=== PATIENT | female | born 1995 | race Asian ===

== ENCOUNTER 2017-03-21 15:50 | Emergency (ER) | payer SELFPAY ==
[2017-03-21 16:15] VITALS: BP 96/60
--- NOTE | 2017-03-21 18:31 | UC ---
Augusto Wilcox Stephanie, scribed for Isiah Espinoza MD on 03/21/17 at 1831 . Abdominal Pain Female HPI - HPI Summary HPI Summary: Pt is a 21 y/o F brought in by her professor with abdominal pain that began at 2400. She reports that this is the first day of her period but the pain is unusually intense. Pt took Advil but vomited 20 minutes after taking the pill. She thinks the vomiting is due to her pain intensity which she currently reports as being a 4, but was previously an 8 out of 10. Pt denies back pain and dysuria. - History of Current Complaint Chief Complaint: UCAbdominalPain Stated Complaint: ABD PAIN Time Seen by Provider: 03/21/17 17:13 Hx Obtained From: Patient Hx Last Menstrual Period: 03/20/17 Onset/Duration: Sudden Onset, Still Present Severity Initially: Severe - 8 out of 10 Severity Currently: Mild Pain Intensity: 4 Pain Scale Used: 0-10 Numeric Location: Epigastric Aggravating Factor(s): Nothing Alleviating Factor(s): Nothing Associated Signs and Symptoms: Negative: Back Pain, Urinary Symptoms Allergies/Adverse Reactions: Allergies Allergy/AdvReac Type Severity Reaction Status Date / Time No Known Allergies Allergy Verified 03/21/17 16:15 Home Medications: Home Medications Ibuprofen TAB* [Advil TAB*] 200 mg PO Q6H PRN 03/21/17 [History Confirmed ] PMH/Surg Hx/FS Hx/Imm Hx Previously Healthy: Yes - Surgical History Surgical History: None - Social History Occupation: Student Lives: Dormitory/Roommates - [employer] [place] Alcohol Use: Occasionally Substance Use Type: None Smoking Status (MU): Never Smoked Tobacco Review of Systems Gastrointestinal: Abdominal Pain - suprapubic, Vomiting - 1x Genitourinary: Other - Negative: Urinary Symptoms All Other Systems Reviewed And Are Negative: Yes Physical Exam Triage Information Reviewed: Yes Vital Signs: Initial Vital Signs Temp 97.6 F 03/21/17 16:08 Pulse 66 03/21/17 16:08 Resp 18 03/21/17 16:08 BP 96/60 03/21/17 16:08 Pulse Ox 100 03/21/17 16:08 Vital Signs Reviewed: Yes - Additional Comments General: well-appearing, no pain distress Skin: warm, color reflects adequate perfusion, dry Head: normal Eyes: EOMI, PEYTON ENT: normal Neck: supple, nontender Respiratory: CTA, breath sounds present Cardiovascular: RRR Abdomen: Mild suprapubic tenderness. Bowel: present Musculoskeletal: normal, strength/ROM intact Neurological: normal, sensory/motor intact, A&O x3 Psychological: affect/mood appropriate Abd Pain Female Course/Dx - Course Course Of Treatment: PATIENT REPORTS PAIN DECREASED IN CLINIC COMPARED TO THE PAIN THAT MADE HER COME TO THE CLINIC. SHE STATES THIS IS THE SAME CHARACTER AND LOCATION HER MENSTRUAL CRAMPING. THE PAIN IS MIDLINE, THERE IS NO RLQ TENDERNESS. NO FEVER. DENIES DYURIA AND C/O STI. SHE HAS BEEN TAKING IBUPROFEN 200MG ONCE FOR THE PAIN. SHE FEELS SHE VOMITED DUE TO THE SEVERITY OF THE PAIN. WE DISCUSSED IMMEDIATE REEVALUATION FOR WORSENING OF HER CONDITION; SHE AGREED. RECOMMENDED TAKING IBUPROFEN 600MG EVERY 6 HOURS NEEDED - Differential Dx/Diagnosis Provider Diagnoses: MIDLINE PELVIC PAIN. MENORRHAGIA. Discharge - Discharge Plan Condition: Stable Disposition: HOME Patient Education Materials: Ibuprofen (By mouth), Dysmenorrhea (ED), Pelvic Pain in Women (ED) Referrals: [facility],[place] [Primary Care Provider] - Additional Instructions: FOLLOW UP WITH [facility] IF NOT COMPLETELY IMPROVED. RETURN TO THE EMERGENCY DEPARTMENT FOR ANY WORSENING OF YOUR CONDITION; PAIN, FEVER, YOU FEEL ILL, YOU FEEL LIKE PASSING OUT OR QUESTIONS OR CONCERNS. The documentation as recorded by the Augusto esparza Stephanie accurately reflects the service I personally performed and the decisions made by me, Isiah Espinoza MD.
== END 2017-03-21 18:00 | disposition home or self-care (01) ==
LOC: UCEAST 15:50
DX: R10.2 Pelvic and perineal pain (principal); N92.0 Excessive and frequent menstruation with regular cycle
CPT/HCPCS: 99201; G0463